=== PATIENT | male | born 1970 | race Caucasian/White ===

== ENCOUNTER 2016-11-27 22:32 | Emergency (ER) | payer OTHER ==
[2016-11-27 22:41] VITALS: RESP 16; TEMP 97.7
[2016-11-27] MEDS ORDERED: predniSONE 20 MG TAB ONE (22:43)
[2016-11-27] MEDS ORDERED: predniSONE 20 MG TAB PO ONE (22:44)
[2016-11-27] MEDS ORDERED: FAMOTIDINE 20 MG/2 ML SDV IVP ONE (22:44)
--- NOTE | 2016-11-27 23:33 | EDPHY ---
H & P Stated Complaint: stung on foot by wasp - Personal History Current Tetanus/Diphtheria Vaccine: No - Medical/Surgical History Hx Asthma: No Hx Chronic Respiratory Disease: No Hx Diabetes: No Hx Cardiac Disease: No Hx Renal Disease: No Hx Cirrhosis: No Hx Alcoholism: No Hx HIV/AIDS: No Hx Splenectomy or Spleen Trauma: No Other PMH: PMHx: denies. PSHx: denies - Social History Smoking Status: Never smoked Time Seen by Provider: 11/27/16 22:39 HPI/ROS: Chief complaint: Stung by wasp, allergic reaction History of present illness: This is a 46-year-old male who presents to the emergency department after being stung by a wasp, concerned he is having an allergic reaction. Patient reports approximately 30 minutes ago he stepped on a wasp and stung him. Shortly thereafter he started developed swelling of the face and neck. He denies trouble breathing. He has been stung by a wasp before on his hand with significant swelling of the hand but never with involvement of the face. He denies other associated signs or symptoms again no trouble breathing, no trouble talking, no trouble swallowing, no fevers. (Chidi aRnkin) - Physical Exam Exam: General Appearance: Alert and no distress. Eyes: Pupils equal and round no injection. ENT: Mild periorbital edema and facial edema. No angioedema. There is no hoarseness, no drooling, no trismus, no stridor. Respiratory: Chest is nontender, lungs are clear to auscultation. Cardiac: regular rate and rhythm. Gastrointestinal: Abdomen is soft and nontender, no masses, bowel sounds normal. Musculoskeletal: Neck is supple and nontender. Extremities have full range of motion and are nontender. Skin: Erythema of the face and neck. (Chidi Rankin) Constitutional: Initial Vital Signs Temperature (C) 36.5 C 11/27/16 22:40 Heart Rate 73 11/27/16 22:40 Respiratory Rate 16 11/27/16 22:40 Blood Pressure 106/68 11/27/16 22:40 O2 Sat (%) 94 11/27/16 22:40 O2 Delivery Mode Room Air Allergies/Adverse Reactions: amoxicillin [Amoxicillin] Allergy (Verified 04/26/14 14:38) Penicillins Allergy (Verified 11/27/16 22:40) Home Medications: Medication Instructions Recorded EPINEPHrine [Epipen 0.3 MG] 0.3 mg IM ONCE #2 syr 11/27/16 predniSONE [Deltasone] 40 mg PO DAILY 3 Days 11/27/16 Medical Decision Making ED Course/Re-evaluation: Patient seen under the supervision of my secondary supervising physician Dr. Katherine Santos. Patient presents to the emergency department after being stung by a wasp and having what he believes is an allergic reaction. On presentation patient does have facial swelling. No evidence of respiratory distress. Vital signs are stable. He is given oral prednisone, IV Benadryl and Pepcid. He is observed for over an hour with resolution of symptoms. He is comfortable being discharged home. Home care is discussed including continued use of prednisone as well as Benadryl and Pepcid. He is prescribed epinephrine pens and we have discussed their length at use, we have discussed it is possible that the next allergic reaction could be much more severe. He is to follow up with his primary care doctor for recheck. Return precautions are given. Patient voiced understanding and agreement with plan. (Chidi Rankin) Differential Diagnosis: Included but not limited to allergic reaction, anaphylaxis, contact dermatitis ( Chidi Rankin) Other Provider: PHYSICIAN DOCUMENTATION: The patient was evaluated and managed by the Physician Twist Packer. My co- signature indicates that I have reviewed this chart and I agree with the findings and plan of care as documented. I am the secondary supervising physician. (Tsering Santos) - Data Points Medications Given: Discontinued Medications Diphenhydramine HCl (Benadryl Injection) 25 mg IVP EDNOW ONE Stop: 11/27/16 22:45 Last Admin: 11/27/16 22:53 Dose: 25 mg Famotidine (Pepcid) 20 mg IVP EDNOW ONE Stop: 11/27/16 22:45 Last Admin: 11/27/16 22:53 Dose: 20 mg Prednisone (Prednisone) 60 mg PO EDNOW ONE Stop: 11/27/16 22:45 Last Admin: 11/27/16 22:53 Dose: 60 mg Departure - Departure Disposition: Home, Routine, Self-Care Clinical Impression: Allergic reaction Condition: Good Instructions: General Allergic Reaction (ED) Additional Instructions: Follow-up with your primary care doctor this week for continued evaluation and care Take prednisone daily until finished In addition take [id number] Benadryl and Pepcid as directed for the next 2 -3 days If symptoms worsen or new symptoms develop return to the emergency room for recheck Referrals: Corby Chavarria [Primary Care Provider] - As per Instructions Prescriptions: EPINEPHrine [Epipen 0.3 MG] 0.3 mg IM ONCE #2 syr predniSONE [Deltasone] 40 mg PO DAILY 3 Days
[2016-11-27 23:48] VITALS: BP 96/54; PULSE 54; O2SAT 95
== END 2016-11-27 23:48 | disposition home or self-care (01) ==
DX: T78.40XA Allergy, unspecified, initial encounter (principal)
CPT/HCPCS: 96374; J1200